=== PATIENT | female | born 1930 | race Caucasian/White ===

== ENCOUNTER 2018-03-16 07:33 | Outpatient (CLI) | payer MEDICARE, MEDICAID ==
--- NOTE | 2018-03-16 09:19 | ULT ---
ABDOMINAL ULTRASOUND: History Abdominal pain. COMPARISON: None. TECHNIQUE: Utilizing a multihertz transducer, sonographic imaging of the abdomen was performed in the longitudin al and transverse plane. FINDINGS: The head of the pancreas has an increased echogenicity. The pancreatic duct measures 0.3 cm. The re mainder of the pancreas is obscured by bowel gas. Visualized aorta has a normal caliber. IVC is unremarkable. Hepatic parenchyma has a normal echotexture. No hepatic masses or intrahepatic biliary dilatation. Contour of the hepatic margins is maintained. Right hepatic lobe measures 12.7 cm. Main portal vein is patent. Appropriate directional flow. No sonographic evidence of cholelithiasis, gallbladder wall thickening, or pericholecystic fluid. Ne gative Madrigal's sign. Common bile duct diameter measures between 0.7 and 1.0 cm. Left and right kidney have a normal cortical echotexture. Bilaterally, no hydronephrosis. The right kidney measures 8.1 x 3.3 x 3.7 cm. The left kidney measures 8.1 x 4.0 x 4.0 cm. Mild left renal c ortical thinning. Bilaterally, no hydronephrosis. The spleen has a normal echotexture measuring 6.7 cm. IMPRESSION: 1. No evidence of hydronephrosis. 2. Dilatation of the common bile duct. Correlate for choledocholithiasis. 3. No sonographic evidence of cholecystitis. POS: [facility]
== END 2018-03-16 07:34 | disposition home or self-care (01) ==
LOC: SCSULT 07:33
PROVIDERS: ATTEND Internal Medicine
DX: R10.9 Unspecified abdominal pain (principal); K83.8 Other specified diseases of biliary tract
CPT/HCPCS: 76700